=== PATIENT | male | born 1970 | race African-American/Black ===

== ENCOUNTER 2023-03-15 23:09 | Emergency (ER) | payer MEDICAID ==
[~2023-03-15] VITALS: Ht 172.7 cm; Wt 86.2 kg
[2023-03-15 23:19] VITALS: BP_SYST 149; PULSE 72; RESP 20; TEMP 97.1; O2SAT 100
[2023-03-15] MEDS ORDERED: NACL 0.9% 1,000 ML IV ONE (23:30)
[2023-03-15] MEDS ORDERED: KETOROLAC TROMETHAMINE 30 MG VIAL IVP ONE (23:30)
[2023-03-15] MEDS ORDERED: MORPHINE 4 MG INJ. 4 MG/ML VIAL IVP ONE (23:30)
[2023-03-15] MEDS ORDERED: MORPHINE 4 MG INJ. 4 MG/ML VIAL ONE (23:33)
[2023-03-15 23:47] LABS: BASOPHILS # (AUTO) 0.1 K/uL (0.0-0.2); EOSINOPHILS % (AUTO) 0.4 % (0.0-4.0); HEMATOCRIT 46.5 % (36-54); HEMOGLOBIN 15.2 g/dL (14.0-18.0); LYMPHOCYTES # (AUTO) 2.1 K/uL (1.0-5.5); LYMPHOCYTES % (AUTO) 20.5 % (20.5-51.5); MEAN CORPUSCULAR HEMOGLOBIN 30 pg (27-31); MEAN CORPUSCULAR HGB CONC 33 % (32-36); MEAN CORPUSCULAR VOLUME 93 fL (79.0-98.0); MONOCYTES # (AUTO) 0.6 K/uL (0.0-1.0); MONOCYTES % (AUTO) 5.5 % (1.7-9.3); NEUTROPHILS # (AUTO) 7.5 K/uL (1.8-7.7); NEUTROPHILS % (AUTO) 72.6 % (40.0-70.0); PLATELET COUNT (AUTO) 193 K/uL (130-430); RED BLOOD CELL COUNT(AUTO) 5.02 MIL/uL (4.2-6.2); RED CELL DISTRIBUTION WIDTH 15.3 % (9.0-15.0); WHITE BLOOD COUNT (AUTO) 10.4 K/uL (4.8-10.8)
[2023-03-16] LABS: CREATININE 1.94 mg/dL (0.55-1.30); POTASSIUM 3.2 mmol/L (3.5-5.1)
[2023-03-16 00:05] LABS: ALBUMIN 4.2 g/dL (3.4-4.8); TOTAL BILIRUBIN 1.7 mg/dL (0.0-1.0); TOTAL PROTEIN, SERUM 7.7 g/dL (6.4-8.3)
[2023-03-16 02:32] LABS: BILIRUBIN,URINE NEGATIVE (NEGATIVE); BLOOD, URINE NEGATIVE (NEGATIVE); CLARITY/URINE Clear (CLEAR); COLOR,URINE YELLOW (YELLOW); GLUCOSE,URINE NEGATIVE (NEGATIVE); KETONES,URINE NEGATIVE (NEGATIVE); NITRITE, URINE NEGATIVE (NEGATIVE)
[2023-03-16 02:33] LABS: PROTEIN URINE TRACE (NEGATIVE)
[2023-03-16 02:34] LABS: LEUKOCYTE ESTERASE ,URINE NEGATIVE (NEGATIVE)
[2023-03-16] MEDS ORDERED: MORPHINE 4 MG INJ. 4 MG/ML VIAL IVP ONE (02:45)
[2023-03-16 02:48] LABS: BACTERIA,URINE RARE /HPF (None Seen)
[2023-03-16] MEDS ORDERED: TRAM50TA2 PO (02:49)
[2023-03-16] MEDS ORDERED: TAMS-11 PO (02:49)
[2023-03-16 03:45] VITALS: BP_SYST 145; PULSE 98; RESP 16; TEMP 97.5; O2SAT 98
== END 2023-03-16 03:45 | disposition home or self-care (01) ==
LOC: SED 23:09
DX: N23 Unspecified renal colic (principal); F17.210 Nicotine dependence, cigarettes, uncomplicated; Z79.899 Other long term (current) drug therapy
CPT/HCPCS: 99285; 74176; 96374; 96361; 96375; 80053; 83690; 85025; 36415; 76376; 81003; 81000; 96376; J1885; J2270 ×2; J7030